=== PATIENT | female | born 1930 ===

== ENCOUNTER 2018-07-22 09:16 | Day surgery (SDC) | payer OTHER ==
[~2018-07-22 09:16] MED LIST: ACTIGALL300 MG PO; GLIMEPIRIDE4 MG PO; LANTUS SOL100 UNIT/1; LIPITOR20 MG PO; LOSARTAN-HCTZ1 EAC1 PO; LYRICA50 MG PO; METFORMIN HCL750 MG PO; METOPROLOL SUCC25 MG PO; NORVASC10 MG PO; SUCRALFATE1 GM PO
[2018-07-22] MEDS ORDERED: ULTRACET PO (10:29)
== END 2018-07-22 13:00 | disposition home or self-care (01) ==
LOC: CIR.AMB 09:16
DX: R15.9 Full incontinence of feces (principal)
CPT/HCPCS: 64590; C1767